=== PATIENT | female | born 1945 | race Caucasian/White ===

== ENCOUNTER → 2016-06-22 | Day surgery (SDC) | payer MEDICARE, BC ==
[~2016-06-22] MED LIST: ALDACTONE25 MG PO; ANASTROZOLE1 MG PO; ATORVASTATIN CA80 MG PO; CARVEDILOL6.25 MG PO; COREG6.25 M1 PO; DICLOFENAC PO; DURAGESIC1 EAC3 TOP; FOLIC ACID1 MG PO; FUROSEMIDE40 MG PO; GABAPENTIN600 MG PO; IBRANCE125 MG; LASIX80 MG PO; LIPITOR20 MG PO; LOC PO; LOVENOX40 MG/0.4 INJ; NORCO 10/3251 TAB PO; NORCO 7.5-3251 EACH PO; OXYCODONE-ACET1 EACH PO; PANTOPRAZOLE SO40 MG PO; POTASSIUM CHLO10 ME1 PO
--- NOTE | ~2016-06-22 | OR ---
Unit #: [id number] #: [id number] Patient: PENNIE CELESTIN [id number] [address] [address] [id number] O MR#: [id number] NAME: PENNIE CELESTIN ROOM: Date of Procedure: 06/22/2016 Admission Date: 06/22/2016 Surgeon: Arturo Newman M.D. : 1945 Attending Physician: Arturo Newman M.D. Primary Care Physician: Nelida Hilliard M.D. OPERATIVE REPORT PREOPERATIVE DIAGNOSES Thoracic pathologic fracture secondary to metastatic breast cancer, intractable pain. POSTOPERATIVE DIAGNOSES Thoracic pathologic fracture secondary to metastatic breast cancer, intractable pain. PROCEDURE PERFORMED Thoracic epidural steroid injection with intravenous sedation and fluoroscopic guidance for needle localization. INDICATIONS FOR PROCEDURE The patient is a 71-year-old female with metastatic breast cancer. She has a pathologic C6 burst fracture because of this she is not a candidate for kyphoplasty due to the fact there is retropulsion. She is not settle adequately with radiation therapy or chemo or narcotics. Plan is for a trial of an epidural steroid injection at this pathologic level based on history, pathology, and symptomatology. DESCRIPTION OF PROCEDURE The patient was placed in a seated position. Standard monitors were applied. 1 mg of Versed was given for sedation and anxiolysis, which was adequate. Vital signs remained stable. Sterile prep and drape then of the thoracic area was performed. The skin then just to the right of midline at the T6-T7 level was localized with 1% lidocaine. An 18-gauge makeenatead needle was then advanced via right paramedian approach and into the epidural space. The patient did not complain of any pain or paresthesia during needle advancement. After confirming proper positioning with fluoroscopy and radiographic contrast, a dose of 80 mg Depo-Medrol and 2 mL of 0.25% bupivacaine were deposited. The patient tolerated the procedure otherwise well and was discharged to the recovery room in stable condition. Dictated by... Genie Garcia/penny TD: 06/22/2016 22:39 Unit #: [id number] #: [id number] Patient: PENNIE CELESTIN JOB #: [id number] CC: Jeff Cox M.D. OPERATIVE REPORT Page 1 of 1 X Arturo Newman MD X PROCEDURE OPERATIVE NOTE
== END | disposition home or self-care (01) ==
LOC: CCSC 07:07
DX: M84.58XA Pathological fracture in neoplastic disease, other specified site, initial encounter for fracture (principal); C50.919 Malignant neoplasm of unspecified site of unspecified female breast; C79.51 Secondary malignant neoplasm of bone
CPT/HCPCS: J1040; J2250

== ENCOUNTER → 2016-07-29 | Day surgery (SDC) | payer MEDICARE, BC ==
--- NOTE | ~2016-07-29 | OR ---
Unit #: [id number] #: [id number] Patient: PENNIE CELESTIN [id number] [address] [address] [id number] O MR#: [id number] NAME: PENNIE CELESTIN ROOM: Date of Procedure: 07/29/2016 Admission Date: 07/29/2016 Surgeon: Arturo Newman M.D. : 1945 Attending Physician: Arturo Newman M.D. Primary Care Physician: Nelida Hilliard M.D. OPERATIVE REPORT PREOPERATIVE DIAGNOSES Thoracic pathologic compression fracture, metastatic breast cancer, back pain. POSTOPERATIVE DIAGNOSES Thoracic pathologic compression fracture, metastatic breast cancer, back pain. PROCEDURE PERFORMED Thoracic epidural steroid injection with intravenous sedation and fluoroscopic guidance for needle localization. INDICATIONS FOR PROCEDURE The patient is a 71-year-old female with the C6 level burst fracture due to metastatic breast cancer. She has significant pain at this level. She was not deemed to be a kyphoplasty candidate. Plan is for trial of epidural steroid injection at this level. Previous injection, substantial change in her symptom complex. above the level of the fracture and see if that works better in this case. DESCRIPTION OF PROCEDURE The patient was placed in the seated position. Standard monitors were applied. 1 mg of Versed was given for sedation and anxiolysis, which was adequate. Vital signs remained stable. Sterile prep and drape then of the thoracic area was performed. The skin just to the left of midline at the T5 level was localized with 1% lidocaine. An 18-gauge Hustead needle was then advanced via left paramedian approach and loss of resistance technique in toward the epidural space. This technically quite difficult due to compression fracture. We were unable to get the needle into the epidural space finally getting the needle into the epidural space confirming proper positioning with fluoroscopy at dose of 80 mg of Depo-Medrol and 4 mL of 0.125% bupivacaine were deposited. Expectations that it will help to settle down into the symptomatic area. Dictated by... Arturo Newman M.D. LHP/lissal Unit #: [id number] #: [id number] Patient: PENNIE CELESTIN TD: 07/30/2016 02:34 JOB #: [id number] OPERATIVE REPORT Page 1 of 1 X Arturo Newman MD X PROCEDURE OPERATIVE NOTE
== END | disposition home or self-care (01) ==
LOC: CCSC 07:10
DX: M48.54XA Collapsed vertebra, not elsewhere classified, thoracic region, initial encounter for fracture (principal); M84.58XA Pathological fracture in neoplastic disease, other specified site, initial encounter for fracture; C79.81 Secondary malignant neoplasm of breast; Z88.0 Allergy status to penicillin; Z79.899 Other long term (current) drug therapy; Z79.1 Long term (current) use of non-steroidal anti-inflammatories (NSAID)
CPT/HCPCS: J1040; J2250